=== PATIENT | female | born 1985 | race Caucasian/White ===

== ENCOUNTER 2020-07-24 08:23 | Outpatient (RCR) | payer BC, SELFPAY ==
[2020-06-19 11:03] VITALS: BP 110/72; PULSE 87
[2020-06-23 08:29] VITALS: BP 113/67; PULSE 100
[2020-06-27 10:11] VITALS: BP 118/66; PULSE 89
[2020-06-30 09:07] VITALS: BP 117/76; PULSE 84
[2020-07-04 08:58] VITALS: BP 121/77; PULSE 107
[2020-07-07 08:52] VITALS: BP 110/67; PULSE 91
[2020-07-10 08:49] VITALS: BP 109/70; PULSE 89
[2020-07-14 09:47] VITALS: BP 114/75; PULSE 93
[2020-07-17 09:22] VITALS: BP 117/68; PULSE 107
--- NOTE | 2020-07-17 10:52 | PC.NURSE ---
Dr Barrera informed of BPP of 12/08 and reactive nst, ok to dc home.
[2020-07-21 08:50] VITALS: BP 114/72; PULSE 96
--- NOTE | ~2020-07-24 | US_ITS ---
EXAMINATION: US OB BPP wo non-stress DATE: 07/04/2020 10:17 INDICATION: Gestational diabetes and hypertension. Assess biophysical profile. TECHNIQUE: Real-time pelvic ultrasound was performed. The interpreting radiologist was not present fo r the study. COMPARISON: None. FINDINGS: There is a single living fetus in vertex presentation. The placenta is posterior fundal. heart rate is 155 beats per minute (bpm). Biophysical profile performed by the technologist: breathing (30 sec sustained breathing in 30 minutes): 2 out of 2 movement (3 gross body movements in 30 minutes): 2 out of 2 tone (one episode of ffjqseq-nuadrupew-qicxuwf limb movement): 2 out of 2 Amniotic fluid pocket (2 cm): 2 out of 2 Total score: 8 out of 8 IMPRESSION: 1. Single living fetus in vertex presentation with heart rate of 155 bpm. 2. Biophysical profile 8 out of 8. Reviewed, dictated and finalized at location A. ITY ASSURANCE LAB TECHNICIAN
--- NOTE | ~2020-07-24 | US_ITS ---
EXAMINATION: US OB BPP wo non-stress DATE: 07/10/2020 09:09 SENIOR ADMINISTRATOR SUPPORT INDICATION: Gestational diabetes. Hypertension. TECHNIQUE: Real-time transabdominal obstetric ultrasound. FINDINGS: 07/04/2020 There is a single living fetus in vertex presentation. The placenta is vertex without placenta previ a. cardiac activity and movement is noted with a heart rate of 145 beats per minute. Biophysical profile: breathin of 2 movement: 2 of 2 tone: 2 of 2 Amniotic flud pocket: 2 of 2 Total score: 8 of 8 IMPRESSION: 1. Single living intrauterine in vertex presentation. 2: Total biophysical profile score of 8/8. Reviewed, dictated and finalized at location A. OR ADMINISTRATOR SUPPORT
--- NOTE | ~2020-07-24 | US_ITS ---
EXAMINATION: US OB BPP wo non-stress EXAM DATE: 06/27/2020 10:21 INDICATION: Gestational diabetes. 3rd trimester. TECHNIQUE: Pelvic obstetrical transabdominal sonogram was performed by a technologist. There are mu ltiple grayscale and Doppler images available for interpretation. Comparison is made to prior examina tion from 06/19/2020. FINDINGS: There is a single fetus identified in vertex presentation with a heart rate of 144 beats pe r minute. The placenta is located in the posterior position. There is no sonographic evidence of ret roplacental hemorrhage identified. BIOPHYSICAL PROFILE (performed by the technologist) breathing (30 sec sustained breathing in 30 minutes): 2 out of 2 movement (3 gross body movements in 30 minutes): 2 out of 2 tone (one episode of ghzegju-ztjlbeyou-koetiws limb movement): 2 out of 2 Amniotic fluid pocket (2 cm): 2 out of 2 Total score: 8 out of 8 IMPRESSION: 1. Single fetus with heart rate of 144 bpm. 2. Normal biophysical profile score of 8 out of 8. Reviewed, dictated and finalized at location A. LOPMENT MANAGER
--- NOTE | ~2020-07-24 | US_ITS ---
EXAMINATION: US OB BPP wo non-stress EXAM DATE: 07/24/2020 09:18 INDICATION: Gest DM and Chronic HTN GDM. 3rd trimester. TECHNIQUE: Pelvic obstetrical transabdominal sonogram was performed by a technologist. There are mu ltiple grayscale and Doppler images available for interpretation. Comparison is made to prior examina tion from 07/17/2020. FINDINGS: There is a single fetus identified in vertex presentation with a heart rate of 144 beats pe r minute. The placenta is located in the fundal position. There is no sonographic evidence of retrop lacental hemorrhage identified. BIOPHYSICAL PROFILE (performed by the technologist) breathing (30 sec sustained breathing in 30 minutes): 2 out of 2 movement (3 gross body movements in 30 minutes): 2 out of 2 tone (one episode of kiwgbgf-zqjwiumfh-hdhtgii limb movement): 2 out of 2 Amniotic fluid pocket (2 cm): 2 out of 2 Total score: 8 out of 8 IMPRESSION: 1. Single fetus with heart rate of 144 bpm. 2. Normal biophysical profile score of 8 out of 8. Reviewed, dictated and finalized at location A. TECHNICIAN
--- NOTE | ~2020-07-24 | US_ITS ---
EXAMINATION: US OB BPP wo non-stress DATE: 07/17/2020 10:07 INDICATION: Gestational diabetes, hypertension TECHNIQUE: Real-time pelvic ultrasound was performed. The interpreting radiologist was not present fo r the study. COMPARISON: 07/10/2020 FINDINGS: There is a single living fetus in vertex presentation. The placenta is anterior/left. heart rat e is 131 beats per minute (bpm). Biophysical profile performed by the technologist: breathing (30 sec sustained breathing in 30 minutes): 0 out of 2 movement (3 gross body movements in 30 minutes): 2 out of 2 tone (one episode of nhsulif-eehzlxutj-mawzseq limb movement): 2 out of 2 Amniotic fluid pocket (2 cm): 2 out of 2 Total score: 6 out of 8 IMPRESSION: 1. Single living fetus in vertex presentation. 2. Biophysical profile 6 out of 8. Reviewed, dictated and finalized at location A. FOUNTAIN OPERATOR
--- NOTE | ~2020-07-24 | US_ITS ---
EXAMINATION: US OB BPP wo non-stress DATE: 06/19/2020 11:34 INDICATION: Gestational diabetes. Hypertension. Third trimester. TECHNIQUE: Real-time pelvic ultrasound was performed. COMPARISON: None. FINDINGS: There is a single living fetus in vertex presentation. The placenta is posterior. heart rate i s 126 beats per minute (bpm). The amniotic fluid index is 10.1 cm, which is normal. Biophysical profile performed by the technologist: breathing (30 sec sustained breathing in 30 minutes): 2 out of 2 movement (3 gross body movements in 30 minutes): 2 out of 2 tone (one episode of vmncxlv-crqsoctxn-lhnpktg limb movement): 2 out of 2 Amniotic fluid pocket (2 cm): 2 out of 2 Total score: 8 out of 8 IMPRESSION: 1. Single living fetus in vertex presentation. 2. Biophysical profile 8 out of 8. Reviewed, dictated and finalized at location A. CONDUCTOR WAFER INSPECTOR
[2020-07-24 09:20] VITALS: BP 122/72; PULSE 87
== END 2020-07-29 12:01 | disposition home or self-care (01) ==
LOC: ANHOBOP 08:23
PROVIDERS: PCP Internal Medicine; Visit Provider Obstetrics & Gynecology
DX: O16.3 Unspecified maternal hypertension, third trimester (principal); O24.419 Gestational diabetes mellitus in pregnancy, unspecified control; O09.513 Supervision of elderly primigravida, third trimester; Z3A.32 32 weeks gestation of pregnancy; Z3A.33 33 weeks gestation of pregnancy; Z3A.34 34 weeks gestation of pregnancy; Z3A.35 35 weeks gestation of pregnancy; Z3A.36 36 weeks gestation of pregnancy; Z3A.37 37 weeks gestation of pregnancy
CPT/HCPCS: 59025; 76819

== ENCOUNTER 2020-07-28 16:42 | Inpatient (IN) | payer BC, SELFPAY ==
[2020-07-28] VITALS (13 sets, daily range): BP systolic 114–139; BP diastolic 73–89; PULSE 85–102; TEMP 36.6–37.2; O2SAT 98
--- NOTE | 2020-07-28 16:53 | LDADM ---
This patient, Ana Rodriguez, was admitted to Labor/Delivery/Recovery 109 on 07/28/20 at 16:42. Plans for labor, pain management and were discussed with patient. Patient/family oriented to hospital policies and general routines including ID bracelet, bed and alarms, visiting hours, pain management, procedures, bathroom and other care routines, personal items, smoking policy, room service/diet and guest tray routines, infant security routines, and visiting hours. Patient/Family are encouraged to report perceived risks to care and to ask questions if they do not understand what they are told or what they should do. See OBIX for further documentation.
--- NOTE | 2020-07-28 16:58 | WPDANESEPP ---
Anes - Eval Pre Procedure Procedure: labor epidural Date/Time: 07/28/20 16:58 Surgeon: roberta Pre Op Diagnosis: Induction of Labor Patient Data Age: 35 Gender: F Height: Weight: Allergies Allergy/AdvReac Type Severity Reaction Status Date / Time No Known Allergies Allergy Verified 07/18/20 15:29 Home Medications Medication Instructions Recorded Confirmed Type labetalol 100 mg PO Q12H 06/30/20 07/24/20 History aspirin [Low-Dose Aspirin] 81 mg PO DAILY 07/18/20 07/24/20 History prenat.vits,davide,rpr-vrhe-kixob 1 tablet PO DAILY 07/18/20 07/24/20 History [ #2] glyburide 2.5 mg PO HS 07/24/20 07/24/20 History Patient hx anesthesia problems: none Family hx anesthesia problems: none PMFSH Past Medical History Medical History (Updated 07/28/20 @ 16:59 by Khadijah Ramirez CRNA) Gestational diabetes mellitus Hypertension Family History Family History (Updated 07/18/20 @ 15:31 by Fermin Avalos RN) Father Hypertension Mother Hypertension Sibling Hypertension Social History Social History Substance use: never Spiritual care concerns: No Exam Day of Procedure 07/28/20 16:58
[2020-07-28 17:23] LABS: Basophils Percent Auto 0.3 % (0.2-1.2); Eosinophils Absolute Auto 0.2 K/mm3 (0-0.3); Eosinophils Percent Auto 1.3 % (0-4.4); Hematocrit 40.5 % (37.0-47.0); Hemoglobin 13.6 g/dL (12.0-15.0); Immature Granulocyte Percent A 0.7 % (0-0.5); Lymphocytes Absolute Auto 2.17 K/mm3 (0.9-3.2); Lymphocytes Percent Auto 14.7 % (18.3-44.2); Mean Corpuscular HGB Conc 33.6 g/dl (32-36); Mean Corpuscular Hemoglobin 32.4 pg (26-34); Mean Corpuscular Volume 96.4 fl (80-100); Mean Platelet Volume 10.2 fl (7.4-10.4); Monocytes Absolute Auto 1.2 K/mm3 (0.1-0.6); Monocytes Percent Auto 8.2 % (2.6-8.5); Neutrophils Percent Auto 74.8 % (45.5-73.1); Platelet Count Result 327 k/mm3 (150-375); Red Cell Distribution Width 13.7 % (11.5-14.5); White Blood Count 14.7 K/mm3 (4.5-10.0)
[2020-07-28] MEDS: DINOPROSTONE 10 MG VAG INSERT VAGINAL (17:39)
[2020-07-28 17:40] LABS: Uric Acid 4.4 mg/dL (2.5-7.5)
[2020-07-28 17:41] LABS: Alanine Aminotransferase 19 U/L (4-35); Albumin Level 3.8 g/dL (3.5-5.1); Alkaline Phosphatase 115 U/L (38-126); Anion Gap 9 mmol/L (8-16); Aspartate Amino Transferase 23 U/L (14-36); Bilirubin,Total 0.3 mg/dL (0.2-1.3); Blood Urea Nitrogen 10 mg/dL (7-17); Calcium 9.4 mg/dL (8.4-10.2); Carbon Dioxide 21 mmol/L (22-30); Chloride 103 mmol/L (98-107); Estimated CRCL calculation 136 ml/min; Estimated Glomerular Filt Rate > 60; Glucose 118 mg/dL (65-105); Potassium 3.7 mmol/L (3.4-5.0); Sodium 133 mmol/L (137-145)
[2020-07-28] MEDS: LABETALOL HCL 100 MG TABLET PO (21:11)
[2020-07-28 21:16] LABS: Glucose Point of Care 80 (65-105)
[2020-07-29] VITALS (151 sets, daily range): BP systolic 83–165; BP diastolic 63–107; PULSE 74–129; RESP 16; TEMP 36.2–37; O2SAT 95–100
[2020-07-29 01:45] LABS: Glucose Point of Care 82 (65-105)
[2020-07-29] MEDS: LACTATED RINGERS 1,000 ML 125 ML IV CONT ×2 (05:56→08:44)
[2020-07-29] MEDS: OXYTOCIN 30 UNITS/NS 500 ML 30 UNITS/500 ML BAG IV CONT (05:57)
[2020-07-29 06:03] LABS: Glucose Point of Care 91 (65-105)
[2020-07-29 09:46] LABS: Glucose Point of Care 96 (65-105)
[2020-07-29 10:38] LABS: Rapid Plasma Reagin Non-Reactive (NonReactive)
[2020-07-29] MEDS: ONDANSETRON INJ 4 MG/2 ML VIAL IV PUSH (12:06)
[2020-07-29 13:38] LABS: Glucose Point of Care 99 (65-105)
--- NOTE | 2020-07-29 17:27 | WPDHPUPDATE1 ---
History and Physical Update Update Date/Time: 07/29/20 17:27 History and Physical has been reviewed, including an updated exam of the patient. There are NO changes in the patient's condition. Risks, benefits, and alternatives have been discussed and questions answered. Patient agrees to proceed with procedure.
--- NOTE | 2020-07-29 17:27 | WPDOBADMIT ---
Obstetrics - Admit Note Admission Note: record reviewed. No pertinent additions to the history and/or any subsequent changes in the physical findings that are not consistent with the expected course of the were found. Additions to the history and/or subsequent changes in the physical findings follow. None.
--- NOTE | 2020-07-29 17:27 | PM.OBPRVD ---
OB - Delivery Note Procedure events: Gestational Diabetes and Induced HTN Route of delivery: Episiotomy description: None Laceration Description: None Specimen: Yes Quantitative Blood Loss (ml): 300 Anesthesia type: Epidural Disposition: floor Narrative: patient prepped and draped usual manner for this procedure. Maternal expulsive efforts readily delivered vertex and nuchal cord was noted and reduced. Rest of baby was delivered without difficulty. Cord was clamped and cut and the placenta delivered spontaneously. Cervix vagina vulva were inspected with no significant lacerations or tears. Uterus well contracted and in no significant bleeding. At this point the procedure was considered terminated with immediate postop condition mother and baby both excellent. Baby Weeks of gestation at delivery: 38 gender: Female Weight (pounds): 6 Weight (ounces): 12 Placenta delivery description: Spontaneous cord vessel description: 3 Vessels score one minute: 9 score five minutes: 9
[2020-07-29] MEDS: OXYTOCIN 30 UNITS/NS 500 ML 30 UNITS/500 ML BAG 125 UNITS IV CONT (17:36)
[2020-07-29] MEDS: IBUPROFEN 600 MG TABLET PO (19:31)
[2020-07-29] MEDS: WITCH HAZEL 40 PADS 1 PAD TOPICAL (19:31)
[2020-07-29] MEDS: LANOLIN (LANSINOH) 7.5 GM CREAM 1 APPLIC TOPICAL (19:32)
[2020-07-29] MEDS: BENZOCAINE 20% AER SPR (*SP) 56 GM CAN 1 SPRAY TOPICAL (19:32)
[2020-07-29] MEDS: LABETALOL HCL 100 MG TABLET PO (22:50)
[2020-07-30 04:57] LABS: Hematocrit 34.8 % (37.0-47.0); Hemoglobin 11.8 g/dL (12.0-15.0)
[2020-07-30 07:40] VITALS: BP 122/82; PULSE 84; RESP 18; TEMP 37.7; O2SAT 98
--- NOTE | 2020-07-30 08:12 | WPDANLDPN2 ---
Anes-Prog Note L&D Date/Time: 07/30/20 08:12 Comfortable throughout: labor and delivery Neuraxial method: epidural Epidural/Spinal procedure site: clean & non-tender Neuro status: Neuro function grossly intact. Cardiovascular status: normal Respiratory status: normal Airway patency: baseline Mental status: baseline Post-Op hydration status: normal Vital Signs: Last Vital Signs Temp 36.8 C 07/29/20 19:55 Pulse 100 07/29/20 19:55 Resp 16 07/29/20 19:55 BP 131/82 07/29/20 19:55 Pulse Ox 97 07/29/20 17:04 Pain score (VAS): 0 I/O: Intake & Output 07/29/20 07/30/20 07/30/20 23:59 07:59 15:59 Intake Total 1500 Output Total 125 Balance 1375 Post-procedural complaints: none Patient feedback: Patient satisfied with anesthetic care.
[2020-07-30 08:45] VITALS: PULSE 84; RESP 16; O2SAT 97
[2020-07-30] MEDS: MULTIVIT/MIN/PREN/FOL AC/IRON TABLET 1 TAB PO (09:09)
[2020-07-30] MEDS: IBUPROFEN 600 MG TABLET PO ×2 (09:09→17:13)
[2020-07-30 09:10] VITALS: PULSE 84
[2020-07-30] MEDS: LABETALOL HCL 100 MG TABLET PO ×2 (09:10→20:59)
--- NOTE | 2020-07-30 14:40 | PM.OBDSVD ---
DS: Admitting Diagnosis Admitting Diagnosis Admitting Diagnosis: OB - DS: Summary OB Procedures : None OB Procedures Intrapartum: Spontaneous Vag Delivery OB Procedures: : None Time Spent with Patient Time attestation: Total time spent providing and/or coordinating discharge services: DS: Data Data Completed and Pending Pending studies at discharge: Pending at discharge 07/29/20 17:48 Surgical [PTH] Routine Labs on day of discharge: Labs from last 24 hours 07/30/20 04:18 Hgb 11.8 L Hct 34.8 L Discharge Plan Discharge Discharging Clinician: Jose Barrera Anticipated Discharge Date/Time: 07/31/20 08:40 Patient Disposition: Home, Self-Care Activity: as tolerated Diet: as tolerated Patient Instructions: Antibiotic Form Stand Alone Forms: General Discharge Information Follow-up/Referrals: Jose Barrera MD [Physician] - 3 Weeks Discharge Medications: Continued labetalol 100 mg Tablet 100 mg PO Q12H RF: 0 #2 Tablet 1 tablet PO DAILY RF: 0 Discontinued glyburide 5 mg Tablet 2.5 mg PO HS RF: 0 Low-Dose Aspirin 81 mg Tablet 81 mg PO DAILY RF: 0 Date of admission: 07/28/20 16:42 Primary Care Provider: Melony,Jayy Elaine Admitting Provider: Jose Barrera Attending physician on admission: Jose Barrera Condition: Stable
[2020-07-30 19:24] VITALS: BP 120/79; PULSE 78; RESP 16; TEMP 36.7
--- NOTE | 2020-07-30 20:40 | PC.NURSE ---
Patient viewed the discharge video Mother & Baby Care, The First Two Weeks . Patient was given the opportunity and encouraged to ask questions. Patient verbalized understanding of information shared and has been given the mother/baby guide for home reference.
[2020-07-30 20:59] VITALS: PULSE 78
[2020-07-31] MEDS: IBUPROFEN 600 MG TABLET PO (05:58)
[2020-07-31 08:45] VITALS: PULSE 95; RESP 18; O2SAT 99
[2020-07-31 08:50] VITALS: BP 122/75; PULSE 95; RESP 18; TEMP 37; O2SAT 99
[2020-07-31 09:12] VITALS: PULSE 95
[2020-07-31] MEDS: LABETALOL HCL 100 MG TABLET PO (09:12)
[2020-08-01 09:04] VITALS: BP 129/87; PULSE 82; RESP 16; TEMP 37.2; O2SAT 100
--- NOTE | 2020-08-03 23:11 | PM.OBDSVD ---
DS: Admitting Diagnosis Admitting Diagnosis Admitting Diagnosis: OB - DS: Summary OB Procedures : None OB Procedures Intrapartum: Spontaneous Vag Delivery OB Procedures: : None Time Spent with Patient Time attestation: Total time spent providing and/or coordinating discharge services: DS: Data Data Completed and Pending Completed studies during hospitalization: Pending at discharge 07/29/20 17:48 Surgical [PTH] Routine Discharge Plan Discharge Discharging Clinician: Jose Barrera Anticipated Discharge Date/Time: 07/31/20 08:40 Patient Disposition: Home, Self-Care Activity: as tolerated Diet: as tolerated Discharge Instructions: Education: Mom and Baby Guide Given to: Mother Follow-Up: Call your delivering provider's office for an appointment to be seen in: 3 weeks Mom and baby should come to the [facility] for the follow-up appointment. Appointment Date/Time: Saturday, August 01, 2020 at 9:00 a.m. What to expect at your follow-up visit: Blood Pressure Check Physical Assessment Call [phone] if you are unable to keep your appointment time. BREAST CARE: * Wear a snug supportive bra. * For engorgement discomfort: Breast Feeding: * Apply warm moist washcloths * Express milk as needed to relieve engorgement * Wear loose clothing * For sore nipples: * Identify correct latch-on * Apply warm moist washcloths before and after nursing * Air dry nipples after nursing * May apply Lansinoh cream to nipples EPISIOTOMY/PERINEAL CARE: * Until bleeding stops, use your bruce bottle after urinating * Change your pad frequently throughout the day * You may take sitz baths several times a day (fill your bathtub with warm water and soak for 20 minutes.) Do NOT bathe in the water * No tub baths until seen by your physician - You may shower ACTIVITY: * Rest as much as possible. * Do not exercise or lift anything heavier than your baby (such as laundry or other children.) * Avoid stairs or driving as much as possible. * Do not put anything into the vagina. No douching, tampons, or sexual activity until seen by physician. NOTIFY PHYSICIAN IF YOU HAVE ANY QUESTIONS OR IF ANY OF THE FOLLOWING SYMPTOMS OCCUR: * If your vaginal bleeding becomes foul smelling. * If your vaginal bleeding becomes more heavy than a period or if your bleeding changes from pink to bright red. However, you may pass an occasional walnut-sized clot once or twice for the first week . * If you experience a sharp, shooting pain in you calves. * If you discover a hard, reddened area on your breast or if you experience flu-like symptoms. DIET: * Eat regular, well-balanced meals. * Drink plenty of fluids daily. If , drink to thirst. Stand Alone Forms: General Discharge Information Follow-up/Referrals: Jose Barrera MD [Physician] - 3 Weeks Discharge Medications: Continued labetalol 100 mg Tablet 100 mg PO Q12H RF: 0 prenat.vits,davide,ccq-bdll-upnqy Tablet 1 tablet PO DAILY RF: 0 Discontinued glyburide 5 mg Tablet 2.5 mg PO HS RF: 0 Low-Dose Aspirin 81 mg Tablet 81 mg PO DAILY RF: 0 Date of admission: 07/28/20 16:42 Primary Care Provider: Melony,Jayy Elaine Admitting Provider: Jose Barrera Attending physician on admission: Jose Barrera Condition: Stable
--- NOTE | 2020-08-04 08:30 | PM.OBDSVD ---
DS: Admitting Diagnosis Admitting Diagnosis Admitting Diagnosis: OB - DS: Summary OB Procedures : None OB Procedures Intrapartum: Spontaneous Vag Delivery OB Procedures: : None Time Spent with Patient Time attestation: Total time spent providing and/or coordinating discharge services: DS: Data Data Completed and Pending Completed studies during hospitalization: Pending at discharge 07/29/20 17:48 Surgical [PTH] Routine Discharge Plan Discharge Discharging Clinician: Jose Barrera Anticipated Discharge Date/Time: 07/31/20 08:40 Patient Disposition: Home, Self-Care Activity: as tolerated Diet: as tolerated Discharge Instructions: Education: Mom and Baby Guide Given to: Mother Follow-Up: Call your delivering provider's office for an appointment to be seen in: 3 weeks Mom and baby should come to the [facility] for the follow-up appointment. Appointment Date/Time: Saturday, August 01, 2020 at 9:00 a.m. What to expect at your follow-up visit: Blood Pressure Check Physical Assessment Call [phone] if you are unable to keep your appointment time. BREAST CARE: * Wear a snug supportive bra. * For engorgement discomfort: Breast Feeding: * Apply warm moist washcloths * Express milk as needed to relieve engorgement * Wear loose clothing * For sore nipples: * Identify correct latch-on * Apply warm moist washcloths before and after nursing * Air dry nipples after nursing * May apply Lansinoh cream to nipples EPISIOTOMY/PERINEAL CARE: * Until bleeding stops, use your bruce bottle after urinating * Change your pad frequently throughout the day * You may take sitz baths several times a day (fill your bathtub with warm water and soak for 20 minutes.) Do NOT bathe in the water * No tub baths until seen by your physician - You may shower ACTIVITY: * Rest as much as possible. * Do not exercise or lift anything heavier than your baby (such as laundry or other children.) * Avoid stairs or driving as much as possible. * Do not put anything into the vagina. No douching, tampons, or sexual activity until seen by physician. NOTIFY PHYSICIAN IF YOU HAVE ANY QUESTIONS OR IF ANY OF THE FOLLOWING SYMPTOMS OCCUR: * If your vaginal bleeding becomes foul smelling. * If your vaginal bleeding becomes more heavy than a period or if your bleeding changes from pink to bright red. However, you may pass an occasional walnut-sized clot once or twice for the first week . * If you experience a sharp, shooting pain in you calves. * If you discover a hard, reddened area on your breast or if you experience flu-like symptoms. DIET: * Eat regular, well-balanced meals. * Drink plenty of fluids daily. If , drink to thirst. Stand Alone Forms: General Discharge Information Follow-up/Referrals: Jose Barrera MD [Physician] - 3 Weeks Discharge Medications: Continued labetalol 100 mg Tablet 100 mg PO Q12H RF: 0 prenat.vits,davide,ljv-anrm-rypga Tablet 1 tablet PO DAILY RF: 0 Discontinued glyburide 5 mg Tablet 2.5 mg PO HS RF: 0 Low-Dose Aspirin 81 mg Tablet 81 mg PO DAILY RF: 0 Date of admission: 07/28/20 16:42 Primary Care Provider: Melony,Jayy Elaine Admitting Provider: Jose Barrera Attending physician on admission: Jose Barrera Condition: Stable
== END 2020-07-31 12:15 | disposition home or self-care (01) | DRG 807 ==
LOC: ANHLDR 07-29 14:59 → ANHOB2 07-29 19:48
PROVIDERS: Admitting Provider Obstetrics & Gynecology; PCP Internal Medicine; Visit Provider Obstetrics & Gynecology
DX: O24.429 Gestational diabetes mellitus in childbirth, unspecified control (principal); Z37.0 Single live birth; O13.4 Gestational [pregnancy-induced] hypertension without significant proteinuria, complicating childbirth; O69.1XX0 Labor and delivery complicated by cord around neck, with compression, not applicable or unspecified; Z3A.38 38 weeks gestation of pregnancy
CPT/HCPCS: 36415; 80053; 84550; 85014; 85018; 85025; 86592; 86850; 86900; 86901; 88307; A9270; J2405; J2590; J2795; J7120

== ENCOUNTER 2023-01-09 07:50 | Outpatient (RCR) | payer BC, SELFPAY ==
[2022-12-12 09:24] VITALS: BP 117/73; PULSE 84
[2022-12-19 08:54] VITALS: BP 107/71; PULSE 82
[2022-12-26 09:28] VITALS: BP 113/72; PULSE 81
[2023-01-02 08:22] VITALS: BP 108/71; PULSE 88
--- NOTE | ~2023-01-09 | US_ITS ---
EXAMINATION: US OB BPP wo non-stress DATE: 12/26/2022 09:26 INDICATION: Gestational diabetes during third trimester TECHNIQUE: Real-time pelvic ultrasound was performed. The interpreting radiologist was not present fo r the study. COMPARISON: 12/19/2022 FINDINGS: There is a single living fetus in vertex presentation. The placenta is fundal/posterior. heart rate is 135 beats per minute (bpm). The amniotic fluid index is 12 cm which is normal (normal range: 7.9 cm to 24.9 cm). Biophysical profile performed by the technologist: breathing (30 sec sustained breathing in 30 minutes): 2 out of 2 movement (3 gross body movements in 30 minutes): 2 out of 2 tone (one episode of ckvxbvd-lfcytickg-wazbdsb limb movement): 2 out of 2 Amniotic fluid pocket (2 cm): 2 out of 2 Total score: 8 out of 8 IMPRESSION: 1. Single living fetus in vertex presentation. 2. Biophysical profile 8 out of 8. 3. Normal amniotic fluid index. Reviewed, dictated and finalized at location []
--- NOTE | ~2023-01-09 | US_ITS ---
EXAMINATION: US OB BPP wo non-stress DATE: 12/12/2022 09:22 CDT INDICATION: Gestational diabetes TECHNIQUE: Real-time transabdominal obstetric ultrasound. FINDINGS: Ultrasound dated 12/05/2022 There is a single living fetus in vertex presentation. The placenta is vertex without placenta previ a. cardiac activity and movement is noted with a heart rate of 147 beats per minute. Biophysical profile: breathin of 2 movement: 2 of 2 tone: 2 of 2 Amniotic flud pocket: 2 of 2 Total score: 8 of 8 IMPRESSION: 1. Single living intrauterine in vertex presentation. 2: Total biophysical profile score of 8/8. Reviewed, dictated and finalized at location []
--- NOTE | ~2023-01-09 | US_ITS ---
EXAMINATION: US OB BPP wo non-stress DATE: 12/19/2022 08:53 CDT INDICATION: Gestational diabetes TECHNIQUE: Real-time transabdominal obstetric ultrasound. FINDINGS: Ultrasound dated 12/12/2022 There is a single living fetus in vertex presentation. The placenta is fundal without placenta previ a. cardiac activity and movement is noted with a heart rate of 143 beats per minute. Biophysical profile: breathin of 2 movement: 2 of 2 tone: 2 of 2 Amniotic flud pocket: 2 of 2 Total score: 8 of 8 IMPRESSION: 1. Single living intrauterine in vertex presentation. 2: Total biophysical profile score of 8/8. Reviewed, dictated and finalized at location []
--- NOTE | ~2023-01-09 | US_ITS ---
EXAMINATION: US OB follow up w BPP DATE: 01/09/2023 08:58 INDICATION: Gestational diabetes during third trimester . Estimate weight. TECHNIQUE: Real-time pelvic ultrasound was performed. The interpreting radiologist was not present fo r the study. COMPARISON: None. FINDINGS: There is a single living fetus in vertex presentation. The placenta is fundal. heart rate is 1 38 beats per minute (bpm). Biophysical profile performed by the technologist: breathing (30 sec sustained breathing in 30 minutes): 2 out of 2 movement (3 gross body movements in 30 minutes): 2 out of 2 tone (one episode of hcpaftu-przgvsjez-irawrql limb movement): 2 out of 2 Amniotic fluid pocket (2 cm): 2 out of 2 Total score: 8 out of 8 The following biometric data were obtained: BPD: 8.9 cm -> 36 weeks 1 days Head circumference: 32.0 cm -> 36 weeks 0 days Abdominal circumference: 31.4 cm -> 35 weeks 2 days Femur length: 7.0 cm -> 35 weeks 5 days These measurements are concordant. Head circumference to abdominal circumference ratio: 1.02 (normal range 0.93-1.08). Estimated weight: 2715 g (+/-) 407 g, 6lbs 0oz (+/-) 14oz IMPRESSION: 1. Single living fetus in vertex presentation. 2. Biophysical profile 8 out of 8. 3. Estimated weight is 15th percentile by Hadlock criteria when 01/27/2023 is used as the estima amina date of delivery (DESTINY). Please correlate with clinical information or earlier ultrasounds for mos t accurate DESTINY. Reviewed, dictated and finalized at location A. IMPRESSION: 1. Single living fetus in vertex presentation. 2. Biophysical profile 8 out of 8. 3. Estimated weight is 15th percentile by Hadlock criteria when 01/27/2023 is used as the estimated date of delivery (DESTINY). Please correlate with clinica l information or earlier ultrasounds for most accurate DESTINY.
--- NOTE | ~2023-01-09 | US_ITS ---
EXAMINATION: US OB BPP wo non-stress DATE: 01/02/2023 08:33 INDICATION: Gestational diabetes. Chronic hypertension. Third trimester. TECHNIQUE: Real-time pelvic ultrasound was performed. COMPARISON: Ultrasound 12/26/2022 FINDINGS: There is a single living fetus in vertex presentation. The placenta is fundal. heart rate is 1 35 beats per minute (bpm). Biophysical profile performed by the technologist: breathing (30 sec sustained breathing in 30 minutes): 2 out of 2 movement (3 gross body movements in 30 minutes): 2 out of 2 tone (one episode of sztcxxr-olqftkbpp-jvbgdhf limb movement): 2 out of 2 Amniotic fluid pocket (2 cm): 2 out of 2 Total score: 8 out of 8 IMPRESSION: 1. Single living fetus in vertex presentation. 2. Biophysical profile 8 out of 8. Reviewed, dictated and finalized at location A.
[2023-01-09 08:19] VITALS: BP 112/73; PULSE 95
== END 2023-02-13 12:56 | disposition home or self-care (01) ==
LOC: ANHOBOP 07:50
PROVIDERS: PCP Internal Medicine; Visit Provider Obstetrics & Gynecology
DX: O16.3 Unspecified maternal hypertension, third trimester (principal); O24.419 Gestational diabetes mellitus in pregnancy, unspecified control; Z3A.37 37 weeks gestation of pregnancy; Z3A.38 38 weeks gestation of pregnancy; Z3A.39 39 weeks gestation of pregnancy
CPT/HCPCS: 59025; 76816; 76819

== ENCOUNTER 2023-01-16 05:44 | Inpatient (IN) | payer BC, SELFPAY ==
[2023-01-16] VITALS (74 sets, daily range): BP systolic 108–158; BP diastolic 63–109; PULSE 65–108; RESP 16; TEMP 36.9; O2SAT 97–100; BMI 26.7
--- NOTE | 2023-01-16 06:16 | P.PNAN_ITS ---
Anes - Eval Pre Procedure Procedure: labor epidural Date/Time: 01/16/23 06:16 Surgeon: mira Preop Diagnosis: pain during labor Pre Op Diagnosis: Induction of Labor Patient Data Age: 37 Gender: F Height: Weight: Last Vital Signs Pulse 96 01/16/23 06:01 BP 120/74 01/16/23 06:01 Pulse Ox 98 01/16/23 06:01 Allergies Allergy/AdvReac Type Severity Reaction Status Date / Time No Known Allergies Allergy Verified 12/22/22 09:19 Home Medications Medication Instructions Recorded Confirmed Type labetalol 100 mg tablet 100 mg PO Q12H 06/30/20 12/08/22 History prenat.vits,davide,ckt-ynob-yeaap 1 tablet PO DAILY 07/18/20 12/08/22 History glyburide 2.5 mg tablet 2.5 mg PO QHS #60 tabs 11/21/22 12/08/22 Rx omeprazole 20 mg capsule,delayed 20 mg PO DAILY 12/30/22 12/30/22 History release glyburide 5 mg tablet 5 mg PO DAILY #10 tabs 01/11/23 Rx glyburide 2.5 mg tablet 2.5 mg PO QHS #10 tabs 01/12/23 Rx Patient hx anesthesia problems: none Family hx anesthesia problems: none Results Review: All pre-operative results and documents have been reviewed as part of the pre- operative evaluation. FORMERLY [facility], [facility] Past Medical History Medical History Anxiety Blood glucose abnormal Gastritis Gestational diabetes mellitus Hypertension Surgical History Surgical History History of skin graft skin graft on forehead as infant Family History Family History Father Hypertension Mother Hypertension Sibling Hypertension Social History Social History (Updated 12/08/22 @ 09:51 by Kristie Dubon MA) Smoking status: Never smoker Alcohol intake: never Substance use: never Substance use type: does not use Lack of Transportation: No Lack of Food: Never True Current Housing: I Have Housing Concerned About Future Housing: No Difficulty Paying Gas/Electric Bills: No Difficulty Paying for Meds: No Currently Unemployed: No Education: High School Diploma/GED Difficulty w/ Childcare or Family Care: No Living arrangements: other Additional living arrangements comments: Occupation/Education: occupation 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
[2023-01-16 06:52] LABS: Basophils Percent Auto 0.1 % (0.2-1.2); Eosinophils Absolute Auto 0.1 K/mm3 (0-0.3); Eosinophils Percent Auto 1.2 % (0-4.4); Hematocrit 36.8 % (37.0-47.0); Hemoglobin 12.2 g/dL (12.0-15.0); Immature Granulocyte Absolute 0.03 K/mm3 (0.00-0.031); Immature Granulocyte Percent A 0.4 % (0-0.5); Lymphocytes Absolute Auto 1.36 K/mm3 (0.9-3.2); Mean Corpuscular HGB Conc 33.2 g/dl (32-36); Mean Corpuscular Hemoglobin 31.9 pg (26-34); Mean Corpuscular Volume 96.1 fl (80-100); Mean Platelet Volume 10.3 fl (7.4-10.4); Monocytes Absolute Auto 0.9 K/mm3 (0.1-0.6); Monocytes Percent Auto 10.5 % (2.6-8.5); Neutrophils Absolute Auto 6.1 K/mm3 (1.3-6.7); Neutrophils Percent Auto 71.8 % (45.5-73.1); Platelet Count Result 270 k/mm3 (150-375); Red Blood Count 3.83 M/mm3 (4.2-5.4); White Blood Count 8.5 K/mm3 (4.5-10.0)
[2023-01-16] MEDS: OXYTOCIN 30 UNITS/NS 500 ML 30 UNITS/500 ML BAG IV CONT (07:03)
[2023-01-16] MEDS: LACTATED RINGERS 1,000 ML 125 ML IV CONT (07:04)
--- NOTE | 2023-01-16 07:16 | PM.IMHP ---
H&P: HPI History of Present Illness Date/Time: 01/16/23 07:16 Chief Complaint: Induction of labor Narrative: Ana is a 37yo @ 38.3 who presents to L&D for medical induction due to A2GDM and CHTN on medications. She reports good movements. No ctx, vb, lof. She has been undergoing routine care. Her is complicated by: 1. AMA... NIPT normal, declined MFM referral 2. HTN... currently on labetalol 100mg BID and baby aspirin 3. A2GDM.. on glyburide 5mg qhs 4. Desires sterilization Review of Systems Constitutional: Constitutional: Denies chills, Denies fever(s) and Denies headache(s) Eyes: Eyes: Denies change in vision ENT: Denies headache(s) Cardiovascular: Cardiovascular: Denies chest pain and Denies dyspnea Respiratory: Respiratory: Denies dyspnea Genitourinary: Genitourinary: Denies abnormal vaginal bleeding and Denies vaginal discharge Neurologic: Denies headache(s) Psychiatric: Psychiatric: Denies anxiety and Denies depression [facility] Past Medical History Medical History Anxiety Blood glucose abnormal Gastritis Gestational diabetes mellitus Hypertension Surgical History Surgical History History of skin graft skin graft on forehead as Family History Family History Father Hypertension Mother Hypertension Sibling Hypertension Social History Social History (Updated 12/08/22 @ 09:51 by Kristie Dubon MA) Smoking status: Never smoker Alcohol intake: never Substance use: never Substance use type: does not use Lack of Transportation: No Lack of Food: Never True Current Housing: I Have Housing Concerned About Future Housing: No Difficulty Paying Gas/Electric Bills: No Difficulty Paying for Meds: No Currently Unemployed: No Education: High School Diploma/GED Difficulty w/ Childcare or Family Care: No Living arrangements: other Additional living arrangements comments: Occupation/Education: occupation 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[employer] Gender identity (if verbalized by the patient): Female Sexual Orientation (if Verbalized by the Patient): Straight or Heterosexual Spiritual care concerns: No Meds Home Medications and Allergies Home Medications Medication Instructions Recorded Confirmed Type labetalol 100 mg tablet 100 mg PO Q12H 06/30/20 12/08/22 History prenat.vits,davide,ncf-hgjg-lmghu 1 tablet PO DAILY 07/18/20 12/08/22 History glyburide 2.5 mg tablet 2.5 mg PO QHS #60 tabs 11/21/22 12/08/22 Rx omeprazole 20 mg capsule,delayed 20 mg PO DAILY 12/30/22 12/30/22 History release glyburide 5 mg tablet 5 mg PO DAILY #10 tabs 01/11/23 Rx glyburide 2.5 mg tablet 2.5 mg PO QHS #10 tabs 01/12/23 Rx Allergies Allergy/AdvReac Type Severity Reaction Status Date / Time No Known Allergies Allergy Verified 12/22/22 09:19 Vital Signs Vital Signs - 24 hr 01/16/23 06:01 01/16/23 07:12 Pulse Rate 96 73 Blood Pressure 120/74 125/80 Pulse Oximetry 98 Exam Const: General: cooperative, healthy appearing, comfortable and no acute distress Orientation/consciousness: patient oriented x3 Resp: Effort & Inspection: normal respiratory effort Cardio: Rate: regular rate GI: GI Palp: No abdominal tenderness : Other: FHT's: 145's/ mod chintan/ + accels/ no decels - cat 1 TOCO: ctxs q2-3min Cervix: 2/20/-2 Membranes: AROM, clear 0730 Presentation: cephalic Skin: General skin exam: normal color Neuro: General: patient oriented x3 Extrem: General: normal to inspection Psych: Appearance: grossly normal Affect: normal affect Attitude: cooperative H&P: Results Labs Labs: Short CBC 01/16/23 Range/Units 06:44 WBC 8.5 (4.5-10.0) K/mm3 Hgb 12.2 (12.0-15.0) g/dL Hct 36.
--- NOTE | 2023-01-16 07:36 | WPDHPUPDATE1 ---
History and Physical Update Update Date/Time: 01/16/23 07:36 History and Physical has been reviewed, including an updated exam of the patient. There are NO changes in the patient's condition. Risks, benefits, and alternatives have been discussed and questions answered. Patient agrees to proceed with procedure.
--- NOTE | 2023-01-16 08:36 | LDADM ---
This patient, Ana Rodriguez, was admitted to Labor/Delivery/Recovery 104 on 01/16/23 at 05:44. Plans for labor, pain management and were discussed with patient. Patient/family oriented to hospital policies and general routines including ID bracelet, bed and alarms, visiting hours, pain management, procedures, bathroom and other care routines, personal items, smoking policy, room service/diet and guest tray routines, infant security routines, and visiting hours. Patient/Family are encouraged to report perceived risks to care and to ask questions if they do not understand what they are told or what they should do. See OBIX for further documentation.
[2023-01-16 09:44] LABS: Rapid Plasma Reagin Non-Reactive (NonReactive)
[2023-01-16 11:49] LABS: Glucose Point of Care 88 mg/dl (65-105)
[2023-01-16 11:50] LABS: Glucose Point of Care 80 mg/dl (65-105)
--- NOTE | 2023-01-16 11:59 | PM.OBPNLAB ---
Pain Control Date/time seen: 01/16/23 11:59 Pain control: tolerating well (requesting epidural) Pelvic Exam Dilation (cm): 4 Effacement (%): 50 station: -2 Amniotic membrane status: Ruptured (AROM, clear 0730) Contractions Monitor mode: External Contraction frequency: 2 (-3) Status status: Category l Assessment and Plan Pitocin rate (mU/min): 10 Assessment: induction ongoing Plan: continuous present management Comments: epidural BS stable BP normal
--- NOTE | 2023-01-16 15:19 | PM.OBPRVD ---
OB - Delivery Note Procedure Delivery date: 01/16/23 Events: Chronic Hypertension and Gestational Diabetes Induction method: Per Pitocin Protocol Delivery augmentation: Rupture of Membranes Delivery monitor: External FHT and External Uterine Route of delivery: Laceration Description: Periurethral Delivery repair: vicryl Specimen: Yes (placenta) Quantitative Blood Loss (ml): 250 Anesthesia type: Epidural Disposition: Floor [place] Baby Date of : 01/16/23 Time of : 14:51 Weeks of gestation at delivery: 38 (.3) Infant gender: Male Weight (pounds): 6 Weight (ounces): 1 presentation: vertex Placenta delivery description: Expressed Cord Vessel Description: 3 Vessels and Delayed Cord Clamping score one minute: 9 score five minutes: 9 Narrative: Ana progressed to complete dilation with strong desire to push. She pushed for two contractions and delivered the head over intact perineum. No nuchal cord was palpated. She easily delivered his shoulders and body without complication. He was immediately placed skin to skin and had a strong cry. Delayed cord clamping was performed. The umbilical cord was then doubly clamped and cut. A segment of the cord was collected for cord gases. The remaining cord blood was collected for typing. With pitocin running and gentle downward traction on the cord, the placenta delivered without issue. Bimanual massage was performed with good fundal tone and minimal bleeding. She was examined and bilateral ureteral lacerations were noted and repaired with a single stitch using 3-0 Vicryl. Sponge, lap, instrument and needle counts were correct at the end of the case. Patient and baby were left in the birthing suite in a stable condition. [facility] Delivery Billing Delivery Delivery: Delivery Charge
[2023-01-16] MEDS: OXYTOCIN 30 UNITS/NS 500 ML 30 UNITS/500 ML BAG 125 UNITS IV CONT (15:25)
--- NOTE | 2023-01-16 17:30 | PC.NURSE ---
Patient transferred to post room #281 via 1730. Support person present. Oriented to unit, room, information board, rooming in, admission packet and security measures. Patient verbalizes understanding.
[2023-01-16] MEDS: IBUPROFEN 600 MG TABLET PO (17:59)
[2023-01-16] MEDS: LABETALOL HCL 100 MG TABLET PO (21:29)
[2023-01-17] VITALS (7 sets, daily range): BP systolic 111–132; BP diastolic 72–86; PULSE 70–82; RESP 16–18; TEMP 36.1–37; O2SAT 98–100
[2023-01-17] MEDS: IBUPROFEN 600 MG TABLET PO ×4 (00:30→20:23)
[2023-01-17 05:28] LABS: Hematocrit 34.9 % (37.0-47.0); Hemoglobin 11.5 g/dL (12.0-15.0)
--- NOTE | 2023-01-17 07:10 | PM.OBPNVD ---
OB - PN: Subj Subjective Date/time seen: 01/17/23 07:10 Narrative: PPD#1 Ana reports doing well today. 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 Her pain is controlled. She is tolerating regular diet, voiding, passing gas, and ambulating without issues. She is breast feeding. She would like her son circumcised. OB - PN: Obj Data Labs 01/17/23 04:09 Labs: Laboratory Results - last 24 hr 01/16/23 01/16/23 01/16/23 06:44 07:40 11:46 Hgb Hct POC Capillary Glucose 88 80 RPR Non-reactive Blood Type A Positive Antibody Screen Negative 01/17/23 04:09 Hgb 11.5 L Hct 34.9 L POC Capillary Glucose RPR Blood Type Antibody Screen OB - PN A/P Assessment and Plan (1) Normal vaginal delivery of third : Code(s): O80 - Encounter for full-term uncomplicated delivery Status: Acute (2) Chronic hypertension: Code(s): I10 - Essential (primary) hypertension Status: Acute (3) Gestational diabetes mellitus (GDM) controlled on oral hypoglycemic drug: Qualifiers: Trimester: third trimester Qualified Code(s): O24.415 - Gestational diabetes mellitus in , controlled by oral hypoglycemic drugs Code(s): O24.415 - Gestational diabetes mellitus in , controlled by oral hypoglycemic drugs Status: Acute Plan day: 1 Plan: routine care and discharge home (tomorrow) Comments: - continue BP meds; pt asymptomatic - Pelvic rest; take meds as prescribed - ER return precautions: fever, n/v/abd pain, bleeding, HTN Time Spent With Patient Time: Total time spent is greater than 50% in coordination of care (as documented) at patient's floor/unit and/or counseling patient: Review of Systems Constitutional: Constitutional: Denies chills, Denies fever(s) and Denies headache(s) Eyes: Eyes: Denies change in vision ENT: Denies dizziness and Denies headache(s) Cardiovascular: Cardiovascular: Denies chest pain, Denies palpitations and Denies dyspnea Respiratory: Respiratory: Denies cough and Denies dyspnea Gastrointestinal: Gastrointestinal: Denies nausea and Denies vomiting Neurologic: Denies dizziness and Denies headache(s) Endocrine: Endocrine: Denies palpitations Exam Const: General: cooperative, comfortable and no acute distress Orientation/consciousness: patient oriented x3 Resp: Effort & Inspection: normal respiratory effort Auscultation: clear to auscultation bilaterally Cardio: Rate: regular rate GI: Inspection: non-distended GI Palp: No abdominal tenderness and Yes Soft to palpation Auscultation: normal bowel sounds : Other: fundus firm Skin: General skin exam: normal color Neuro: General: patient oriented x3 Extrem: General: normal to inspection Psych: Appearance: grossly normal Affect: normal affect Attitude: cooperative
[2023-01-17] MEDS: PANTOPRAZOLE 40 MG TABLET PO (08:10)
[2023-01-17] MEDS: LABETALOL HCL 100 MG TABLET PO ×2 (08:10→20:24)
[2023-01-17] MEDS: MULTIVIT/MIN/PREN/FOL AC/IRON TABLET 1 TAB PO (08:10)
[2023-01-17] MEDS: DOCUSATE SODIUM 100 MG CAPSULE PO (08:10)
--- NOTE | 2023-01-17 13:41 | WPDANLDPN2 ---
Anes-Prog Note L&D Date/Time: 01/17/23 13:41 Neuro status: Neuro function grossly intact. Vital Signs: Last Vital Signs Temp 36.7 C 01/17/23 11:55 Pulse 72 01/17/23 11:55 Resp 18 01/17/23 11:55 BP 123/85 01/17/23 11:55 Pulse Ox 99 01/17/23 11:55 O2 Del Method Room Air 01/16/23 08:36 Pain score (VAS): 0 I/O: Intake & Output 01/16/23 01/17/23 01/17/23 23:59 07:59 15:59 Intake Total 490 Balance 490 Patient feedback: Patient satisfied with anesthetic care.
[2023-01-17] MEDS: BENZOCAINE 20% AER SPR (*SP) 56 GM CAN 1 SPRAY TOPICAL (20:28)
[2023-01-17] MEDS: WITCH HAZEL 40 PADS 1 PAD TOPICAL (20:28)
[2023-01-18] MEDS: IBUPROFEN 600 MG TABLET PO (05:57)
[2023-01-18] MEDS: MULTIVIT/MIN/PREN/FOL AC/IRON TABLET 1 TAB PO (07:52)
[2023-01-18 07:53] VITALS: PULSE 86
[2023-01-18] MEDS: LABETALOL HCL 100 MG TABLET PO (07:53)
[2023-01-18] MEDS: DOCUSATE SODIUM 100 MG CAPSULE PO (07:53)
[2023-01-18] MEDS: PANTOPRAZOLE 40 MG TABLET PO (07:53)
[2023-01-18 07:55] VITALS: BP 133/85; PULSE 87; RESP 16; TEMP 36.9; O2SAT 100
--- NOTE | 2023-01-19 09:36 | PM.OBDSVD ---
DS: Admitting Diagnosis Discharge Date 01/18/23 Admitting Diagnosis Induction of labor A2GDM Chronic hypertension DS: Discharge Diagnosis Discharge Diagnosis (1) Normal vaginal delivery of third : Code(s): O80 - Encounter for full-term uncomplicated delivery Status: Acute OB - DS: Summary OB Procedures : NST and Ultrasound OB Procedures Intrapartum: Spontaneous Vag Delivery OB Procedures: : None Peripartum Data Delivery Method: Natural Vaginal Laceration Description: Periurethral complications: none Ethel 1: Gender: Male Disposition of : home Status at Discharge Functional status at discharge: independent ambulation Overall status at discharge: patient is back to baseline Time Spent with Patient Time attestation: Total time spent providing and/or coordinating discharge services: Time spent: Less than 30 minutes Exam Const: General: cooperative, healthy appearing, comfortable and no acute distress Orientation/consciousness: patient oriented x3 Resp: Effort & Inspection: normal respiratory effort Auscultation: clear to auscultation bilaterally Cardio: Rate: regular rate GI: Inspection: non-distended GI Palp: No abdominal tenderness and Yes Soft to palpation Auscultation: normal bowel sounds : Other: fundus firm Skin: General skin exam: normal color Neuro: General: patient oriented x3 Extrem: General: normal to inspection Psych: Appearance: grossly normal Affect: normal affect Attitude: cooperative DS: Data Data Completed and Pending Pending studies at discharge: Pending at discharge 01/16/23 19:04 Surgical [PTH] Routine Discharge Plan Discharge Discharging Clinician: Merissa Messina Patient Disposition: Home, Self-Care Activity: may shower Diet: regular Discharge Instructions: Education: Mom and Baby Guide Given to: Mother Follow-Up: Call your delivering provider's office for an appointment to be seen in: 3 weeks Mom and baby should come to the [facility] for the follow-up appointment. Appointment Date/Time: January 19, 2023 at 11:00 am What to expect at your follow-up visit: Blood Pressure Check Physical Assessment Call [phone] if you are unable to keep your appointment time. BREAST CARE: * Wear a snug supportive bra. * For engorgement discomfort: Breast Feeding: * Apply warm moist washcloths * Express milk as needed to relieve engorgement * Wear loose clothing * For sore nipples: * Identify correct latch-on * Apply warm moist washcloths before and after nursing * Air dry nipples after nursing * May apply Lansinoh cream to nipples EPISIOTOMY/PERINEAL CARE: * Until bleeding stops, use your bruce bottle after urinating * Change your pad frequently throughout the day * You may take sitz baths several times a day (fill your bathtub with warm water and soak for 20 minutes.) Do NOT bathe in the water * No tub baths until seen by your physician - You may shower ACTIVITY: * Rest as much as possible. * Do not exercise or lift anything heavier than your baby (such as laundry or other children.) * Avoid stairs or driving as much as possible. * Do not put anything into the vagina. No douching, tampons, or sexual activity until seen by physician. NOTIFY PHYSICIAN IF YOU HAVE ANY QUESTIONS OR IF ANY OF THE FOLLOWING SYMPTOMS OCCUR: * If your vaginal area becomes red, swollen, or more painful than what you have experienced in the hospital. * If your vaginal bleeding becomes foul smelling. * If your vaginal bleeding becomes more heavy than a period or if your bleeding changes from the brownish red color it is now to bright red. However, you may pass an occasional walnut-sized clot once or twice for the first week . * If you experience a sharp, shooting pain in your
[2023-01-19 11:26] VITALS: BP 129/95; PULSE 82; RESP 18; TEMP 37.2; O2SAT 100
== END 2023-01-18 13:10 | disposition home or self-care (01) | DRG 807 ==
LOC: ANHLDR 05:48 → ANHOB2 17:54
PROVIDERS: Admitting Provider Obstetrics & Gynecology; PCP Internal Medicine; Visit Provider Obstetrics & Gynecology
DX: O24.429 Gestational diabetes mellitus in childbirth, unspecified control (principal); Z37.0 Single live birth; Z3A.38 38 weeks gestation of pregnancy; O71.82 Other specified trauma to perineum and vulva; O16.4 Unspecified maternal hypertension, complicating childbirth
CPT/HCPCS: 36415; 82948; 85014; 85018; 85025; 86592; 86850; 86900; 86901; 88307; A9270; J2590; J2795; J7120

== ENCOUNTER 2023-02-16 09:24 | Outpatient (CLI) | payer BC, SELFPAY ==
--- NOTE | 2023-02-16 09:30 | ECG_ITS ---
Measurements Intervals [place] Rate: 71 P: 58 MO: 173 QRS: 13 QRSD: 87 T: 32 QT: 394 QTc: 430 Interpretive Statements SINUS RHYTHM NORMAL ELECTROCARDIOGRAM NO PREVIOUS ECG AVAILABLE FOR COMPARISON Electronically Signed On 02-16-2023 13:22:35 CDT by Jah Jimenez M.D.
== END 2023-02-16 09:25 | disposition home or self-care (01) ==
LOC: ANHSURGERY 09:27
PROVIDERS: PCP Internal Medicine; Visit Provider Obstetrics & Gynecology
DX: I10 Essential (primary) hypertension (principal); Z01.818 Encounter for other preprocedural examination
CPT/HCPCS: 93005

== ENCOUNTER 2023-02-20 01:03 | Day surgery (SDC) | payer BC, SELFPAY ==
[2023-02-13 16:38] VITALS: BMI 28.3
--- NOTE | 2023-02-13 16:45 | SUR.PREOP ---
Report to the Outpatient Waiting Room, entrance under the green pavilion located off [facility], at time 1130 on date _02/20/23_. Planned Procedure Time: 1:30pm. Time changes happen often and if your time is changed the preop area will call you the afternoon before. - You and your visitor will be asked to self-screen and do not enter if you have any COVID symptoms. - A mask is optional within the hospital at this time. Patients may have clear liquids (water, carbonated beverages, clear teas, apple juice) until 3 hours prior to surgery with a maximum of 20 ounces. - No food from midnight until time of surgery before 10:30 AM - Infants may have breast milk until 4 hours before surgery, formula 6 hours prior to surgery. - Children will be allowed to drink immediately following surgery. If applicable, please bring a bottle or sippy cup to assist with drinking. Juice, water, soda, and popsicles are readily available. For infants on formula, please bring formula the day of surgery. Pacifiers are allowed. Take the following medications with a SIP of water the morning of surgery: ___labatelol DO NOT STOP ANY OF YOUR OTHER PRESCRIPTION MEDICATIONS PRIOR TO SURGERY ?EXCEPT THE FOLLOWING Medications to discontinue per physician ___omeprazole day of surgery Date to take last dose Please no make-up, nail tristanian, hairspray, perfume, deodorant, or body powder the day of surgery. No jewelry (including any body piercings) or valuables the day of surgery, leave them at home. Please take a shower or bath the night before, or the morning of, surgery with an antibacterial soap. Wear comfortable, loose fitting clothing. Children are encouraged to wear pajamas. - Jewelry must be removed prior to entering the operating room. Rings and piercings that are not removed may be cut off. - The hospital will not accept responsibility for valuables. - Please leave all valuables, including medications, at home the day of surgery. If you are going home after surgery, a licensed miniature train driver must drive you home. - NO public transportation without another adult if you receive anesthesia. - We recommend that an adult stay with you for 24 hours following discharge. - We also recommend that you do not drive, make important decision, drink alcoholic beverages, or take any drugs that were not prescribed by your health care provider for at least 24 hours after your discharge time. For Pediatric surgeries, we recommend two adults accompany the child home. Follow any additional instructions given to you from your surgeon. If you or anyone in your household have experienced Covid symptoms in the past week, please notify your surgeon or the nurse liaison at the phone number below for possible testing. Telephone instructions given to __patient__and asked if any additional questions and then verbalized understanding. Patient advised to call surgeon office or pre surgery nurse liaison [phone] if any additional questions.
[2023-02-20] VITALS (8 sets, daily range): BP systolic 103–167; BP diastolic 57–111; PULSE 57–71; RESP 12–16; TEMP 36.2–36.3; O2SAT 98–100
--- NOTE | 2023-02-20 07:37 | WPDHPUPDATE1 ---
History and Physical Update Update Date/Time: 02/20/23 07:37 History and Physical has been reviewed, including an updated exam of the patient. There are NO changes in the patient's condition. Risks, benefits, and alternatives have been discussed and questions answered. Patient agrees to proceed with laparoscopic bilateral salpingectomy.
--- NOTE | 2023-02-20 11:54 | P.PNAN_ITS ---
Anes - Initial Pre Proc Eval Procedure: Operation Date: 02/20/23 13:30 Proposed Procedures p Bilateral Laparoscopic Salpingectomy - Merissa Messina MD Date/Time: 02/20/23 11:54 Surgeon: Merissa Messina MD Pre Op Diagnosis: Desires Sterilization Patient Data Age: 38 Gender: F Height: 1.65 m Weight: 77.11 kg Allergies Allergy/AdvReac Type Severity Reaction Status Date / Time No Known Allergies Allergy Verified 02/20/23 11:51 Home Medications Medication Instructions Recorded Confirmed Type labetalol 100 mg tablet 100 mg PO Q12H 06/30/20 02/20/23 History omeprazole 20 mg capsule,delayed 20 mg PO DAILY 12/30/22 02/20/23 History release Patient hx anesthesia problems: none Family hx anesthesia problems: none Results Review: All pre-operative results and documents have been reviewed as part of the pre- operative evaluation. [facility] Past Medical History Medical History Anxiety Blood glucose abnormal Gastritis Gestational diabetes mellitus Hypertension Surgical History Surgical History History of skin graft skin graft on forehead as infant Family History Family History Father Hypertension Mother Hypertension Sibling Hypertension Social History Social History Smoking status: Never smoker Alcohol intake: never Alcohol use details: occasionally Substance use: never Substance use type: does not use Lack of Transportation: No Lack of Food: Never True Current Housing: I Have Housing Concerned About Future Housing: No Difficulty Paying Gas/Electric Bills: No Difficulty Paying for Meds: No Currently Unemployed: No Education: High School Diploma/GED Difficulty w/ Childcare or Family Care: No Living arrangements: with family Additional living arrangements comments: Occupation/Education: occupation 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[place] Gender identity (if verbalized by the patient): Female Sexual Orientation (if Verbalized by the Patient): Straight or Heterosexual Spiritual care concerns: No Anes - Eval Final PreProcedure Day of Procedure 02/20/23 11:54 Patient weight: overweight Heart: regular rate and rhythm Lungs: clear to auscultation Airway: Mallampati scale class II Neurological: alert and oriented Last oral intake: >/= 8 hours ASA classification: II Emergent: no Anesthetic plan: proceed Anesthesia type and monitoring: general ETT and standard monitoring Results Review: All pre-operative results and documents have been reviewed as part of the pre- operative evaluation. Informed Consent: The patient's anesthetic plan and its attendant risks and benefits were discussed with the patient/family/POA. Questions were solicited and answers provided to the satisfaction of the patient/family/POA.
[2023-02-20] MEDS: LACTATED RINGERS 1,000 ML 30 ML IV CONT ×2 (12:06→13:24)
[2023-02-20] MEDS: ACETAMINOPHEN 500 MG TABLET 1000 MG PO (12:08)
[2023-02-20] MEDS: KETOROLAC 15 MG/ML VIAL (*BKC) IV PUSH (12:08)
--- NOTE | 2023-02-20 13:14 | P.OP_ITS ---
Procedure Note - Detailed Date of Procedure 02/20/23 Pre-op Diagnosis Desires Sterilization Post-op Diagnosis Same Procedure Performed Laparoscopic bilateral salpingectomy Surgeon Merissa Messina MD Anesthesia General and Local (30cc of 0.25% marcaine w/ epi) Findings Uterus sounded to 10cm, normal appearing cervix. Bilateral fallopian tubes and ovaries normal. Normal uterus. Good hemostasis at end of case. Description of Procedure Ana was taken to the operating room where she was placed under general endotracheal anesthesia without complications. She was then prepped and draped in the usual sterile fashion in the dorsal lithotomy position with her legs in low Jesus stirrups and her arms tucked at her side with a strap over her chest. A time-out was performed and no preoperative antibiotics were indicated. My attention was turned down below where her bladder was drained via straight catheterization. A bivalve speculum was then placed within the vagina where the cervix was easily identified. The anterior lip of the cervix was grasped with a single-tooth tenaculum, the uterus was sounded, and a diagnostic uterine manipulator was placed without complications. My gloves were changed and my attention was turned to her abdomen. An umbilical incision was made, and a 5 mm trocar was placed under direct visualization without complications. Once intra- abdominal placement was confirmed the abdomen was insufflated with carbon dioxide gas. She was then placed in Trendelenburg and two additional 5 mm ports were placed in the left and right lower quadrants under direct visualization without complications. The above findings were noted. The left fallopian tube was then elevated and the mesosalpinx was serially clamped, coagulated, transected using the LigaSure device until the proximal end of the fallopian tube was reached. The proximal end of the fallopian tube was cross clamped, coagulated and transected. The tube was then removed from the abdomen. The same procedure was then performed on the right side without any complications. Good hemostasis was noted. All instruments were removed from the abdomen. The insufflation was released and the trocars were removed. The 3 laparoscopic incision sites were reapproximated using 4-0 Monocryl and covered with Dermabond. The incisions were then infiltrated using 0.25% Marcaine. The uterine manipulator was removed. Sponge, lap, instrument, and needle counts were correct at the end of the procedure. Patient was awoken from general anesthesia and taken to recovery with plans of same-day discharge home. Estimated Blood Loss 10 IV Fluids 1,400 Urine Output 100 Pathology Yes (left and right fallopian tubes) Complications No immediate complications Condition Stable Disposition Same day [facility] Billing Surgery - Charge Forward: Surgery Billing
[2023-02-20] MEDS: fentaNYL CITRATE INJ (*CRX) 100 MCG/2 ML VIAL 25 MCG IV PUSH ×2 (14:10→14:27)
[2023-02-20] MEDS: oxyCODONE HCL (*CRX) 5 MG TAB IR PO (15:10)
[2023-02-20] MEDS: ONDANSETRON INJ 4 MG/2 ML VIAL IV PUSH (15:10)
== END 2023-02-20 16:00 | disposition home or self-care (01) ==
PROVIDERS: PCP Internal Medicine; Visit Provider Obstetrics & Gynecology
PROC: (CPT 49320; principal; 2023-02-20 13:30)
DX: Z30.2 Encounter for sterilization (principal); I10 Essential (primary) hypertension
CPT/HCPCS: 58661; 88302; A9270; J0330; J1100; J1885; J2250; J2405; J2704; J3010; J7120

== ENCOUNTER 2024-01-01 13:26 | Outpatient (CLI) | payer BC, SELFPAY ==
--- NOTE | ~2024-01-01 | MM_ITS ---
EXAMINATION: MM screening yuan BI w ant HISTORY: Screening mammogram TECHNIQUE: Craniocaudal and mediolateral oblique 3-D tomosynthesis images were obtained and synthetic 2-D images were generated. CAD analysis was submitted and interpreted. COMPARISON: No prior mammogram is available for comparison at this institution. BREAST PARENCHYMAL COMPOSITION:Dense: The breasts are extremely dense, which lowers the sensitivity o f mammography. FINDINGS: No suspicious mass, calcification, or architectural distortion are identified in either felicia ast to suggest malignancy. There has been no suspicious interval change. IMPRESSION: No mammographic evidence of malignancy. Recommend routine screening mammography in one year. BI-RADS Category 1: Negative Reviewed, dictated and finalized at location .
== END 2024-01-01 13:27 ==
PROVIDERS: PCP Internal Medicine; Visit Provider Obstetrics & Gynecology
DX: Z12.31 Encounter for screening mammogram for malignant neoplasm of breast (principal)
CPT/HCPCS: 77063; 77067